=== PATIENT | female | born 1990 | race Caucasian/White ===

== ENCOUNTER 2024-11-23 02:59 | Observation (INO) | payer OTHER, SELFPAY ==
[2024-11-22 22:56] VITALS: BP 147/88
--- NOTE | 2024-11-22 23:32 | ED.GENMED ---
History of Present Illness
General
Chief Complaint: Abdominal Pain
Time Seen by Provider: 11/22/24 23:08
History of Present Illness
History of Present Illness:
34-year-old female presents to the emergency department for evaluation of persistent right lower quadrant pain for the past 2 days. She was seen at [facility] 2 days ago and had a CT scan with IV contrast that showed a ruptured left
ovarian cyst, appendix was not visualized but there were no secondary changes of acute appendicitis. She was noted to have normal labs including normal serum white blood cell count. She followed up with her CORE JAVA ENGINEER today who felt as though her pain
was not consistent with an ovarian pathology and recommended emergency department evaluation given that pain was worsening. Patient states the pain is worse when she stands upright, no associated nausea or vomiting. Prior abdominal surgery
includes x 3
Past History
Past History
ED Past Medical History: Asthma and Other (Tubal ligation, Chiari malformation, Ovarian cyst)
ED Past Surgical History: (X3)
Social History
Tobacco: Smoker
Alcohol: None
Personal: Single
Living: with family
Employment: Employed
Family History
Family History: Other (non contribuatory)
Review of Systems
Review of Systems
Allergies reviewed?: Yes
All Other Systems: ROS reviewed and negative except as documented in HPI and ROS
Phy Exam
Physical Exam
Physical Exam:
GEN: Well appearing, NAD, WDWN
HEENT: Oral mucosa moist, no scleral icterus
Cardiac: Regular rate
Lung: No respiratory distress, no tachypnea
Abdomen: Soft, moderate focal right lower quadrant tenderness, no rigidity or peritoneal signs
MSK: No gross deformity or injuries
Skin: Good color, no pallor or jaundice, no rashes
Neuro: AO x3, moves all extremities freely
Psych: Calm, cooperative
Course
Orders/Labs/Results
Orders:
Orders
11/22/24 23:28
Iohexol [Omnipaque] See Protocol PO NOW STA
US Pelvis W Transvag Combined Urgent
Comment:
Reason For Exam: RLQ pain
11/22/24 23:32
CRP [C-Reactive Protein] Urgent
Complete Blood Count/With Diff Urgent
Comprehensive Metabolic Panel Urgent
11/22/24 23:33
Urinalysis Reflex To Culture Urgent
Date Specimen was Collected: 11/22/24
Time Specimen was Collected: 23:31
11/23/24 01:30
CT Abd/pel W Iv And Oral Contr Urgent
Comment:
Reason For Exam: RLQ pain
11/23/24 02:14
CefTRIAXone [Rocephin] 2,000 mg IV NOW STA
MetroNIDAZOLE 500 MG/100 ML [Flagyl 500 mg] 100 ml IV NOW
Abnormal Lab Results
11/22/24
23:32
WBC 10.9 H 10^3/uL
(4.8-10.8)
RBC 3.87 L 10^6/uL
(4.20-5.40)
Hgb 11.9 L g/dL
(12.0-16.0)
Hct 35.3 L %
(37.0-47.0)
Absolute Neuts (auto) 8.0 H 10^3/uL
(1.4-6.5)
Lymphocytes % 18.8 L %
(20.5-51.1)
C-Reactive Protein 41.90 H mg/L
(0.0-10.00)
11/22/24 23:32
11/22/24 23:32
Vital Signs
Initial and Last Documented VS:
Initial Vital Signs
Temp Pulse Resp BP Pulse Ox
98.4 F 106 14 147/88 98
11/22/24 22:56 11/22/24 22:56 11/22/24 22:56 11/22/24 22:56 11/22/24 22:56
Last Documented Vital Signs
Temp Pulse Resp BP Pulse Ox
98.4 F 106 14 115/72 99
11/22/24 22:56 11/22/24 22:56 11/22/24 22:56 11/23/24 01:22 11/23/24 01:22
MDM/Problems Addressed
MDM/Problems Addressed:
Patient's exam consistent with acute appendicitis however given recent CT scan showing no appendectomy and ultrasound was obtained initially while given the patient p.o. contrast, this ultrasound was unremarkable, follow-up CT showing acute
appendicitis with concerning signs of potential abscess formation. IV antibiotics initiated, will admit to the surgical service for further management
*Critical Care Note
Total Time (30-74mins, 75-104mins- exclusive of procedures): Not Applicable
ED Attending Note
-
Portions of this chart may have been created with voice recognition software.� Occasional wrong word or��sound alike� substitutions may have occurred due to the inherent limitations of voice recognition software.
Discharge Plan
Departure
Patient Disposition: Admit
Date of Disposition: 11/23/24
Time of Disposition: 02:17
Admit to: Med/Surg
Presentation/result/management discussed w/ accepting /DO: Gen De Souza-Anna
Discharge Problem:
Acute appendicitis
Prescriptions:
No Action
albuterol sulfate [Proventil HFA] 90 MCG/PUFF HFA aerosol inhaler
1 - 2 puff inhalation DAILY PRN (Reason: wheezing)
lorazepam 0.5 MG tablet
0.5 mg PO Q4HPRN PRN (Reason: Anxiety) Qty: 15 0RF
prednisone 20 MG tablet
20 mg PO DAILY Qty: 5 0RF
Referrals:
Nadia Galindo DO [Family Provider] -
Interventions
Interventions:
*Risk Screen - Suicide Last Done: 11/22/24 22:56
*General Assessment Last Done: 11/22/24 22:56
*Neglect/Abuse Screening Last Done: 11/22/24 22:56
ED- Fall Risk Assessment Last Done: 11/23/24 00:44
*ED COVID-19 Vaccine History Last Done: 11/23/24 00:44
KD-Iinicv-Zphnoelurr Assessment Last Done: 11/23/24 01:15
Discharge Date and Time
Print Language: PASHTO
[2024-11-22] MEDS: OMNIPAQUE 50 ML PO (23:36)
[2024-11-22 23:59] LABS: % Basophils 0.4 % (0-2); % Eosinophils 1.2 % (0-6); % Immature Granulocytes 0.4 % (0-0.5); % Lymphocytes 18.8 % (20.5-51.1); % Monocytes 5.9 % (1.7-9.3); % Neutrophils 73.3 % (42.2-75.2); Absolute Eosinophils 0.1 10^3/uL (0-0.7); Absolute Lymphocytes 2.1 10^3/uL (1.2-3.4); Absolute Monocytes 0.6 10^3/uL (0.1-0.6); Hematocrit 35.3 % (37.0-47.0); Hemoglobin 11.9 g/dL (12.0-16.0); Mean Corp Hgb Conc. 33.7 g/dL (33.0-37.0); Mean Corpuscular Hgb 30.7 pg (27.0-31.0); Mean Corpuscular Volume 91.2 fL (81.0-99.0); Mean Platelet Volume 10.4 fL (7.4-10.4); Nucleated Red Blood Cells % 0 %; Platelet Count 295 10^3/uL (130-400); Red Blood Cell Count 3.87 10^6/uL (4.20-5.40); Red Cell Dist. Width 12.7 % (11.5-14.5); White Blood Cell Count 10.9 10^3/uL (4.8-10.8)
[2024-11-23] VITALS (10 sets, daily range): BP systolic 104–121; BP diastolic 21–76; BMI 25.0; BMI 25.2
[2024-11-23 00:08] LABS: ALT (SGPT) 19 U/L (0-35); AST (SGOT) 21 U/L (14-36); Albumin 4.2 g/dl (3.5-5.0); Alkaline Phosphatase 65 U/L (38-126); Blood Urea Nitrogen 14 mg/dl (7-17); Calcium 9.5 mg/dl (8.4-10.2); Carbon Dioxide 24 mmol/L (22-30); Chloride 105 mmol/L (98-107); Glucose 92 mg/dl (70-99); Potassium 3.8 mmol/L (3.5-5.1); Sodium 135 mmol/L (135-145); Total Bilirubin 0.5 mg/dl (0.2-1.3); Total Protein 7.2 g/dl (6.3-8.2); eGFR > 60.00
[2024-11-23 00:09] LABS: Urine Albumin Negative (Neg - Trace); Urine Bilirubin Negative (Negative); Urine Character Clear (Clear); Urine Color Yellow; Urine Glucose Negative (Negative); Urine Ketone Negative (Negative); Urine Leukocyte Negative (Negative); Urine Nitrite Negative (Negative); Urine Occult Blood Negative (Negative); Urine Specific Gravity 1.005 (<1.030); Urine Urobilinogen Negative (Neg - 1+)
[2024-11-23] MEDS: FLAGYL 500 MG 100 IV ×3 (02:58→19:41)
[2024-11-23] MEDS: ROCEPHIN 2000 MG IV (02:58)
--- NOTE | 2024-11-23 03:02 | HPS.HSE ---
Addendum entered and electronically signed by Toney Guerra MD 11/23/24 12:21:
I saw and examined the patient.
The PAYROLL MACHINE OPERATOR's note was reviewed and I agree with the note.
Comment:
Seen earlier in am.
History, vitals, labs, imaging reviewed. Patient seen and examined.
34 yo F with 4 days of R abdominal pain (mild) and CT showing evidence for acute appendicitis with small abscess vs phlegmon. I suspect a contained perforation. Minimally tender on exam and vitals and labs unremarkable. Situation and options
discussed with patient and her family including lap appy vs medical management with interval appendectomy at a later date. Risks and benefits of both approaches discussed. The patient is agreeable to the latter option which is reasonable. Will
advance diet and continue antibiotics. NPO after MN tonight just in case. Will reassess tomorrow with a goal of discharging her on po antibiotics.
Original Note:
Family Physician
-
Family Physician: Nadia Galindo
Chief Complaint
-
abd pain x 3-4 days
History of Present Illness
34-year-old female with hx mild asthma, mild chiari malformation, c section x3 presents to the emergency department for evaluation of persistent right lower quadrant pain since monday. She was seen at [facility] 2 days ago and had
a CT scan with IV contrast that showed a ruptured left ovarian cyst, appendix was not visualized but there were no secondary changes of acute appendicitis (per pt recollection, report not available). She was noted to have normal labs including
normal serum white blood cell count. She followed up with her SPINNER OPEN END today because the pain was persistent, who felt as though her pain was not consistent with an ovarian pathology and recommended emergency department evaluation given that pain was
worsening. Patient states the pain, mild but is worse when she stands upright, no associated nausea or vomiting. Prior abdominal surgery includes x 3. Denies nausea, vomiting. Normal BM, Denies fever, denies urinary complaints.
Treatments in ED:
Ct ABD: acute appendicitis in the right lower quadrant with very thickened and ill defines appearance of the appendix especially the tip, in mod inflammatory fat stranding with concern for developing periappendiceal abscess. No free air.
antibiotics- rocephin and flagyl started
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
WBC 10.0
CRP 41.9
Medical History
Past Medical History
Past Medical History: Reports Asthma (albuterol prn) and Other (mild chiari malformation, ovarian cyst rupture)
Past Surgical History: Reports (x3)
Social History
Tobacco: Smoker (occasionally, has cut back recently, maybe smokes pack per week. )
Alcohol: Occasional
Drug: None
Personal: Single
Living: With Family
Employment: Employed
Family History
Family History: Not pertinent
Allergies / Home Medications
Allergies reflects when Allergies were last updated in [employer].
Home Medications with original date entered in [employer]
Allergy/Medication List:
Allergies
Allergy/AdvReac Type Severity Reaction Status Date / Time
bee venom protein (honey bee) Allergy Swelling Verified 12/14/20 16:46
Penicillins Allergy Unknown Verified 12/14/20 16:46
Home Medications
albuterol sulfate 90 mcg/actuation aerosol inhaler (Proventil HFA) 1 - 2 puff inhalation DAILY PRN wheezing
Review of Systems
-
History Source: Patient
A 12 point ROS was completed and negative except as noted: Yes
Constitutional: Reports No Symptoms
EENT: Reports No Symptoms
Respiratory: Reports No Symptoms
Cardiac: Reports No Symptoms
Abdomen/GI: Reports Abdominal Pain and Pain (1-2/10. worse with movement. ); Denies Nausea, Vomiting, Diarrhea, Constipated, Bloody Stools or Black Stools
: Reports No Symptoms
Musculoskeletal: Reports No Symptoms
Skin: Reports No Symptoms
Neurological: Reports No Symptoms
Endocrine: Reports No Symptoms
Hematologic/Lymphatic: Reports No Symptoms
Psych: Reports Anxiety (anxious about anesthesia)
Physical Exam
Vital Signs
Vital Signs
Temp Pulse Resp BP Pulse Ox
98.4 F 106 14 115/72 99
11/22/24 22:56 11/22/24 22:56 11/22/24 22:56 11/23/24 01:22 11/23/24 01:22
Physical Exam
General: Well Developed, Well Nourished, No Apparent Distress, Comfortable, Conversant and Pain (-11/11)
HEENT: NormoCephalic, Anicteric, Moist mucous membranes, Atraumatic and Good Dentition
Respiratory: Clear and Non Labored Respirations
Cardiac: S1/S2 and Regular Rhythm
Breast: Deferred by me
GI: Soft, Non Distended, Normal Bowel Sounds and Tender (RLQ)
Rectal: Deferred by Provider
Genito-urinary: Clear Urine
Musculoskeletal: No Clubbing and No Cyanosis
Skin: Warm and Other (tattoos)
Neuro: Awake, Alert, Oriented, AO x 3, No Motor Deficits, Nonfocal/grossly intact and No Sensory Deficits
Psych: Anxious (some anxiety about having anesthesia)
Laboratory Results
-
11/22/24 23:32
11/22/24 23:32
Laboratory Results
Total Bilirubin 0.5 mg/dl (0.2-1.3) 11/22/24 23:32
AST 21 U/L (14-36) 11/22/24 23:32
ALT 19 U/L (0-35) 11/22/24 23:32
Alkaline Phosphatase 65 U/L (38-126) 11/22/24 23:32
Data Reviewed
-
CT Scan: Discussed with Physician
Impression/Plan
-
IMPRESSION:
acute appendicitis with poss abscess
PLAN:
Admit to service of Dr guerra
med surg obs
#acute appendicitis with poss abscess
-Ct ABD: acute appendicitis in the right lower quadrant with very thickened and ill defines appearance of the appendix especially the tip, in mod inflammatory fat stranding with concern for developing periappendiceal abscess. No free air.
-WBC 10.9--> repeat in am
-Rocephin and Flagyl started in ED---> continue
-Pain control: tylenol, toradol, morphine
-zofran prn
-NPO x meds for OR
#asthma
-takes albuterol prn (rarely)
DVT proph: scd
Full code
Answered questions to best of my ability
[2024-11-23] MEDS: NSS 1000 IV ×2 (04:32→15:16)
--- NOTE | 2024-11-23 05:06 | PTCARENOTE ---
pt is aaox3, no c/o abdomen pain or nausea at this time. pt showered and chg wipes completed. pt npo for surgery. IVF running. pt oriented to room w/ call cooper in reach.
[2024-11-23 07:17] LABS: % Basophils 0.3 % (0-2); % Eosinophils 1.3 % (0-6); % Immature Granulocytes 0.4 % (0-0.5); % Lymphocytes 16.7 % (20.5-51.1); % Monocytes 7.4 % (1.7-9.3); % Neutrophils 73.9 % (42.2-75.2); Absolute Eosinophils 0.1 10^3/uL (0-0.7); Absolute Lymphocytes 1.5 10^3/uL (1.2-3.4); Absolute Monocytes 0.7 10^3/uL (0.1-0.6); Absolute Neutrophils 6.8 10^3/uL (1.4-6.5); Hemoglobin 10.1 g/dL (12.0-16.0); Mean Corp Hgb Conc. 33.7 g/dL (33.0-37.0); Mean Corpuscular Hgb 30.9 pg (27.0-31.0); Mean Corpuscular Volume 91.7 fL (81.0-99.0); Mean Platelet Volume 10.6 fL (7.4-10.4); Nucleated Red Blood Cells % 0 %; Platelet Count 256 10^3/uL (130-400); Red Blood Cell Count 3.27 10^6/uL (4.20-5.40); Red Cell Dist. Width 12.6 % (11.5-14.5); White Blood Cell Count 9.2 10^3/uL (4.8-10.8)
[2024-11-23 07:38] LABS: ALT (SGPT) 18 U/L (0-35); AST (SGOT) 19 U/L (14-36); Albumin 3.4 g/dl (3.5-5.0); Alkaline Phosphatase 59 U/L (38-126); Blood Urea Nitrogen 9 mg/dl (7-17); Calcium 8.8 mg/dl (8.4-10.2); Carbon Dioxide 24 mmol/L (22-30); Chloride 107 mmol/L (98-107); Estimated Creatinine Clearance 112 ml/min; Glucose 85 mg/dl (70-99); Sodium 135 mmol/L (135-145); Total Bilirubin 0.5 mg/dl (0.2-1.3); eGFR > 60.00
--- NOTE | 2024-11-23 10:03 | CM ---
Addendum entered by Farzana Dietrich RN 11/23/24 11:14:
Patient was admitted under observational status. The observational letter was provided and explained. The patient had no questions with regards to the letter.
Original Note:
Reviewed the chart notes and spoke with the patient at the bedside. The patient resides with her significant other in a two story home with no steps to enter. The patient reports no DME/VN/SNF in the past. The patient confirmed her pharmacy of
choice is the [facility]. continues to be available to patient/family and is monitoring medical plan for needs at discharge.
Plan: Discharge to home when medically stable. No needs anticipated at this time.
[2024-11-23] MEDS: TYLENOL 650 MG PO (14:21)
[2024-11-24] MEDS: ROCEPHIN 2000 MG IV (02:21)
[2024-11-24] MEDS: STERILE WATER FOR INJECTION 10 ML IV (02:22)
[2024-11-24] MEDS: NSS 1000 IV (02:29)
[2024-11-24] MEDS: FLAGYL 500 MG 100 IV (04:44)
[2024-11-24 07:00] LABS: % Basophils 0.3 % (0-2); % Eosinophils 1.3 % (0-6); % Immature Granulocytes 0.3 % (0-0.5); % Lymphocytes 19.4 % (20.5-51.1); % Monocytes 7.8 % (1.7-9.3); % Neutrophils 70.9 % (42.2-75.2); Absolute Eosinophils 0.1 10^3/uL (0-0.7); Absolute Lymphocytes 1.5 10^3/uL (1.2-3.4); Absolute Monocytes 0.6 10^3/uL (0.1-0.6); Absolute Neutrophils 5.6 10^3/uL (1.4-6.5); Hematocrit 29.9 % (37.0-47.0); Hemoglobin 10.4 g/dL (12.0-16.0); Mean Corp Hgb Conc. 34.8 g/dL (33.0-37.0); Mean Corpuscular Hgb 31.2 pg (27.0-31.0); Mean Corpuscular Volume 89.8 fL (81.0-99.0); Mean Platelet Volume 10.6 fL (7.4-10.4); Nucleated Red Blood Cells % 0 %; Platelet Count 269 10^3/uL (130-400); Red Blood Cell Count 3.33 10^6/uL (4.20-5.40); Red Cell Dist. Width 12.8 % (11.5-14.5); White Blood Cell Count 7.9 10^3/uL (4.8-10.8)
[2024-11-24 08:00] VITALS: BP 102/60
--- NOTE | 2024-11-24 08:20 | W.PN.GS2 ---
Today's Communication / Plan
-
Discharge.
Assessment / Plan
-
Appendicitis with phlegmon.
1. continuing nonoperative approach. Low residue diet and antibiotics.
2. discharge.
Subjective Data
-
Date of Service: November 24, 2024
Mild RLQ pain.
No nausea or emesis.
Objective Data
-
Intake and Output
11/23/24 11/24/24 11/25/24
06:59 06:59 06:59
Intake Total 350 / 350 1540 / 1540
Balance 350 / 350 1540 / 1540
Intake:
Oral fluids 0 / 0 240 / 240
IV fluids (Total) 250 / 250 1000 / 1000
IV piggybacks 100 / 100 300 / 300
Other:
Number of approximated MODERATE 1 3
amounts of urine
Number of approximated LARGE 1
amounts of urine
Vital Signs
Temp Pulse Resp BP Pulse Ox
98.3 F 82 18 107/21 98
11/23/24 22:55 11/23/24 22:55 11/23/24 22:55 11/23/24 22:55 11/23/24 22:55
Lab Results
11/24/24 05:25
11/23/24 06:06
Calcium 8.8 mg/dl (8.4-10.2) 11/23/24 06:06
Total Bilirubin 0.5 mg/dl (0.2-1.3) 11/23/24 06:06
AST 19 U/L (14-36) 11/23/24 06:06
ALT 18 U/L (0-35) 11/23/24 06:06
Alkaline Phosphatase 59 U/L (38-126) 11/23/24 06:06
Total Protein 6.0 g/dl (6.3-8.2) L 11/23/24 06:06
Albumin 3.4 g/dl (3.5-5.0) L 11/23/24 06:06
Physical Exam
-
AFVSS
Abdomen mildly tender in RLQ
--- NOTE | 2024-11-24 08:26 | W.DS.TRANS ---
DC Summary - Pharmacy Technologist
-
Discharge Instructions:
Discharge Diagnosis/Procedures appendicitis
Diet Low Residue
Activity As tolerated
Driving Restrictions As prior to admission
Bathing Restrictions None
Instructions: Low-fiber diet
Stand-Alone Forms:
Changes to Home Medications: Yes
Discharge Medications:
DC Medications w/original date entered in [facility]
albuterol sulfate 90 mcg/actuation aerosol inhaler (Proventil HFA) 1 - 2 puff inhalation DAILY PRN wheezing 03/27/12
levofloxacin 750 mg tablet 750 mg PO DAILY #10 tabs 11/24/24
metronidazole 500 mg tablet 500 mg PO Q8H 10 days #30 tabs 11/24/24
Home Medication Changes
levofloxacin 750 mg tablet 750 mg PO DAILY #10 tabs 11/24/24
metronidazole 500 mg tablet 500 mg PO Q8H 10 days #30 tabs 11/24/24
Pending Results: No
[2024-11-24] MEDS: TYLENOL 650 MG PO (08:29)
== END 2024-11-24 09:20 | disposition home or self-care (01) ==
LOC: 2 SOUTH 02:59
PROVIDERS: Nurse Practitioner Family; Physician Assistant; ADMITTING PHYSICIAN Surgery; EMERGENCY PHYSICIAN Emergency Medicine; FAMILY PHYSICIAN Family Medicine
DX: K35.33 Acute appendicitis with perforation, localized peritonitis, and gangrene, with abscess (principal); F17.200 Nicotine dependence, unspecified, uncomplicated; J45.909 Unspecified asthma, uncomplicated
CPT/HCPCS: 74177; 76830; 76856; 80053; 81003; 85025; 86140; 96365; 96375; 99285; G0378; Q9967

== ENCOUNTER 2025-01-06 06:31 | Day surgery (SDC) | payer OTHER, SELFPAY ==
[2025-01-06] VITALS (10 sets, daily range): BP systolic 97–118; BP diastolic 54–73; BMI 24.5
[2025-01-06] MEDS: TYLENOL 1000 MG PO (13:49)
[2025-01-06] MEDS: NORMOSOL-R/PLASMALYTE-A 1000 IV (13:49)
[2025-01-06] MEDS: HEPARIN 5000 UNITS SC (14:58)
--- NOTE | 2025-01-06 17:17 | W.IMMPOSTOP ---
Surgical Immed Post Op Note
-
Primary Surgeon: Jean Carlos
Assisting: Edy RAMIREZ
Pre-op Diagnosis: Acute perforated appendicitis, history of
Post-op Diagnosis: Same
Procedure Performed: Laparoscopic apendectomy
Anesthesia Type: GETA
Specimen / Cultures: Appendix
Estimated Blood Loss: 10cc
Complications: None immediate
Operative Findings: Severely scarred appendix to anterior surface of cecum, came apart during dissection but no purulence nor stool contamination was encountered. Irrigated and suctioned.
--- NOTE | 2025-01-06 17:19 | OR.RPT ---
Operative Report
Operative Report
Primary Surgeon: Jean Carlos
Assisting: Edy RAMIREZ
Pre-op Diagnosis: Acute perforated appendicitis, history of
Post-op Diagnosis: Same
Procedure Performed: Laparoscopic apendectomy
Anesthesia Type: GETA
Specimen / Cultures: Appendix
Estimated Blood Loss: 10cc
Complications: None immediate
Operative Findings: Severely scarred appendix to anterior surface of cecum, came apart during dissection but no purulence nor stool contamination was encountered. Irrigated and suctioned.
Date of Surgery: 01/06/25
Indications: 34F developed acute perforated appendicitis and was managed non-operatively. She elected interval laparoscopic appendectomy.
Description of procedure: The patient was placed on the operating table in the supine position. General anesthesia was induced. A time-out was completed verifying correct patient, procedure, site, positioning, and special equipment prior to
beginning this procedure. An orogastric tube was placed. The abdomen was prepped and draped in the usual sterile fashion. A stab incision was made in left upper quadrant and the Veress needle was inserted. Proper position was confirmed by aspiration
and saline meniscus test. The abdomen was insufflated with carbon dioxide to a pressure of 12 mmHg. The patient tolerated insufflation well.
A 5mm optical trocar was then inserted at the left lower quadrant. The laparoscope was inserted and the abdomen inspected. No injuries from initial trocar placement or Veress needle insertion were noted. Additional trocars were then inserted in the
following locations: a 12-mm trocar at the umbilicus and a 5-mm trocar midline in the suprapubic space. The abdomen was inspected and no abnormalities were found. The table was placed in the Trendelenburg position with the right side up. The
appendix was densely fused to the anterior wall of the cecum. The distal right colon and cecum were mobilized off the abdominal wall with the voyant device. The base of the appendix was teased away from the serosa of the cecum and a window around it
was created with a maryland dissector The appendix was taken with an endo SARAH stapler with shukla load. The appendix was then grasped and elevated and bluntly dissected away from the wall of the cecum. An old abscess cavity abutting the cecum was
entered and opened in order to facilitate dissection of the appendix. No purulence nor stool contamination was encountered. Once it was totally freed, the appendix was placed in an endoscopic retrieval bag, removed through the umbilical port, and
passed off the table as a specimen. It did break apart in slightly and all pieces were retrieved.
We then turned our attention to the staple line, which was noted to be hemostatic. The right abdomen was irrigated thoroughly and the effluent was suctioned. The umbilical trocar site was closed at the fascial level laparoscopically with 2-0 PDS
under direct vision. Secondary trocars were removed under direct vision and noted to be hemostatic. The laparoscope was withdrawn and the abdomen was allowed to collapse. The skin was closed with subcuticular sutures of 4-0 monocryl and topical skin
adhesive. The orogastric tube was removed.
The patient tolerated the procedure well and was taken to the postanesthesia care unit in stable condition.
The assistance of Edy RAMIREZ was required due to the complexity of the procedure. During the procedure she assisted with retraction, resection, and closure of the wound.
[2025-01-06] MEDS: DILAUDID 0.25 MG IV ×2 (17:50→18:07)
[2025-01-06] MEDS: TORADOL 15 MG IV (18:56)
== END 2025-01-06 19:28 | disposition home or self-care (01) ==
LOC: SDS 06:31
PROVIDERS: ATTENDING PHYSICIAN Surgery; FAMILY PHYSICIAN Family Medicine
DX: K35.32 Acute appendicitis with perforation, localized peritonitis, and gangrene, without abscess (principal)
CPT/HCPCS: 44970; 88304; C1776

== ENCOUNTER 2025-01-11 12:18 | Emergency (ER) | payer OTHER, SELFPAY ==
[2025-01-11 12:45] VITALS: BP 125/78
[2025-01-11 13:07] VITALS: BMI 24.2
--- NOTE | 2025-01-11 13:08 | ED.GENMED ---
History of Present Illness
General
Chief Complaint: Post Operative Problem(s)
Source: patient and records
Exam Limitations: none
Time Seen by Provider: 01/11/25 12:46
History of Present Illness
History of Present Illness:
34yoF with a history of recent appendectomy on 01/06/[address] Evangelista presenting for evaluation of abdominal pain. Patient was initially seen in the hospital in November 2024. CT showed acute appendicitis with phlegmon at that time. She was
initially managed nonoperatively with antibiotics with plan for delayed surgery. Operative note from 12/06 documents 'Severely scarred appendix to anterior surface of cecum, came apart during dissection but no purulence nor stool contamination was
encountered.' Since her surgery, she continues to have pain in her right lower quadrant. She also reports nausea but denies any vomiting. She has been experiencing chills without fevers. She started with diarrhea 2 days ago which has a distinct
foul odor. Patient is unsure if her symptoms are normal for the postoperative period but decided to come to the ED to be sure that there was nothing concerning going on.
Past History
Past History
ED Past Medical History: Asthma and Other (Tubal ligation, Chiari malformation, Ovarian cyst)
ED Past Surgical History: (X3)
Social History
Tobacco: Smoker
Alcohol: None
Personal: Single
Living: with family
Employment: Employed
Family History
Family History: Other (non contribuatory)
Phy Exam
General Physical Exam
General Presentation: well appearing and no apparent distress
General age: appears stated age
General Skin: warm and dry
General Habitus: normal
General Mental: alert
ENT Exam
ENT Exam: normocephalic
Pulmonary Exam
Pulmonary Exam: no respiratory distress
Gastrointestinal Exam
Gastrointestinal Exam: soft, non distended and other (+Focal tenderness in the RLQ. Surgical incisions c/d/i. Abdomen soft, non-distended. No rebound or guarding.)
Neurological Exam
Neurological Exam: alert
Dez Coma Scale
Eye Opening: Spontaneous
Verbal Response: Oriented
Motor Response: Obeys Commands
GCS Total Score: 15
Skin Exam
Skin Exam: normal color and warm/dry
Psychiatric Exam
Psychiatric Exam: normal mood/affect
Course
Orders/Labs/Results
Orders:
Orders
01/11/25 12:53
Test Result ONCE
01/11/25 13:04
Complete Blood Count/With Diff Urgent
Comprehensive Metabolic Panel Urgent
HCG, Serum Qualitative Screen Urgent
Lipase Urgent
01/11/25 13:06
CT Abd/pel W Iv And Oral Contr Urgent
Comment:
Reason For Exam: RLQ pain, recent appendectomy
0.9% Sodium Chloride 1000 ml [Nss] 1,000 ml IV BOLUS
Iohexol [Omnipaque] See Protocol PO NOW STA
01/11/25 13:39
Ketorolac [Toradol] 15 mg IV NOW STA
Ondansetron Injectable [Zofran] 4 mg IV NOW STA
Abnormal Lab Results
01/11/25
13:04
WBC 11.5 H 10^3/uL
(4.8-10.8)
RBC 4.05 L 10^6/uL
(4.20-5.40)
Hct 35.4 L %
(37.0-47.0)
Plt Count 439 H 10^3/uL
(130-400)
Absolute Neuts (auto) 9.4 H 10^3/uL
(1.4-6.5)
Absolute Monos (auto) 0.7 H 10^3/uL
(0.1-0.6)
Neutrophils % 81.7 H %
(42.2-75.2)
Lymphocytes % 10.3 L %
(20.5-51.1)
Calcium 10.4 H mg/dl
(8.4-10.2)
01/11/25 13:04
01/11/25 13:04
Vital Signs
Initial and Last Documented VS:
Initial Vital Signs
Temp Pulse Resp BP Pulse Ox
97.4 F 102 16 125/78 98
01/11/25 12:45 01/11/25 12:45 01/11/25 12:45 01/11/25 12:45 01/11/25 12:45
Last Documented Vital Signs
Temp Pulse Resp BP Pulse Ox
97.4 F 70 15 106/64 100
01/11/25 12:45 01/11/25 17:00 01/11/25 17:00 01/11/25 15:00 01/11/25 17:00
MDM/Problems Addressed
Differential Diagnosis Includes:
34yoF here with RLQ pain. S/p appendectomy 5 days ago. Also c/o nausea and diarrhea. +Chills but denies fever and temp is 97.4 on arrival. She is well appearing in no distress. No signs of peritonitis on abdominal exam. Surgical incisions c/d/i.
Differential diagnosis includes but is not limited to: postoperative pain, abscess, perforation
Initial ED plan: Check abdominal labs, HCG, and CT abdomen with IV/PO contrast. IV Toradol, Zofran, and fluid bolus for symptoms.
*Critical Care Note
Total Time (30-74mins, 75-104mins- exclusive of procedures): Not Applicable
Update Note
Update Note:
Labs reveal a mild leukocytosis with a WBC of 11.5 which is nonspecific. Remainder of labs unremarkable. Imaging shows small volume pneumoperitoneum and small volume free fluid in the RLQ which is likely all postoperative changes. No discrete fluid
collection present. There is a 2.5cm R adnexal hypodensity, likely an ovarian cyst. Pain controlled on reassessment. No indication for hospitalization. Prescription given for Zofran. Advised close f/u with her general surgery team. ED return
precautions discussed. Patient in agreement with plan and was discharged in stable condition.
ED Attending Note
-
Portions of this chart may have been created with voice recognition software.� Occasional wrong word or��sound alike� substitutions may have occurred due to the inherent limitations of voice recognition software.
Discharge Plan
Departure
Patient Disposition: Home (Routine Discharge)
Date of Disposition: 01/11/25
Time of Disposition: 16:57
Patient with high blood pressure during this ER visit?: No
Discharge Problem:
Postoperative abdominal pain, Nausea
Instructions: Postoperative Pain (DC)
Prescriptions:
New
ondansetron HCl 4 mg tablet
4 mg PO Q6H PRN (Reason: nausea and vomiting) Qty: 20 0RF
No Action
albuterol sulfate 90 mcg/actuation Hfa Aerosol Inhaler
1 inh INHALATION ONCE PRN (Reason: asthma)
tramadol 50 mg tablet
50 - 100 mg PO Q6H PRN (Reason: Pain) Qty: 20 0RF
acetaminophen [Tylenol] 325 mg Tablet
1,000 mg PO Q6H PRN (Reason: pain)
Referrals:
Don Evangelista MD [Active] -
Nadia Galindo DO [Family Provider] -
Activity Restrictions/Additional Instructions:
Take Zofran as needed for nausea.
Please follow-up with your surgery on Monday. Return to the ER with any worsening symptoms including fevers or severe pain.
Interventions
Interventions:
*Risk Screen - Suicide Last Done: 01/11/25 12:45
*General Assessment Last Done: 01/11/25 13:07
*Neglect/Abuse Screening Last Done: 01/11/25 12:45
*ED- Fall Risk Assessment Last Done: 01/11/25 13:07
*ED COVID-19 Vaccine History Last Done: 01/11/25 13:07
*Nursing Disposition Last Done: 01/11/25 17:08
ED-Skin Assessment Last Done: 01/11/25 13:50
Discharge Date and Time
Discharge Date/Time: 01/11/25 17:12
Print Language: RWANDAN
[2025-01-11 13:19] VITALS: BP 106/69
[2025-01-11] MEDS: NSS 1000 IV (13:21)
[2025-01-11] MEDS: OMNIPAQUE 50 ML PO (13:27)
[2025-01-11 13:31] LABS: % Basophils 0.3 % (0-2); % Eosinophils 1.3 % (0-6); % Immature Granulocytes 0.3 % (0-0.5); % Lymphocytes 10.3 % (20.5-51.1); % Monocytes 6.1 % (1.7-9.3); % Neutrophils 81.7 % (42.2-75.2); Absolute Eosinophils 0.2 10^3/uL (0-0.7); Absolute Lymphocytes 1.2 10^3/uL (1.2-3.4); Absolute Monocytes 0.7 10^3/uL (0.1-0.6); Absolute Neutrophils 9.4 10^3/uL (1.4-6.5); Hematocrit 35.4 % (37.0-47.0); Mean Corp Hgb Conc. 33.9 g/dL (33.0-37.0); Mean Corpuscular Hgb 29.6 pg (27.0-31.0); Mean Corpuscular Volume 87.4 fL (81.0-99.0); Mean Platelet Volume 9.9 fL (7.4-10.4); Nucleated Red Blood Cells % 0 %; Platelet Count 439 10^3/uL (130-400); Red Blood Cell Count 4.05 10^6/uL (4.20-5.40); Red Cell Dist. Width 12.5 % (11.5-14.5); White Blood Cell Count 11.5 10^3/uL (4.8-10.8)
[2025-01-11] MEDS: ZOFRAN 4 MG IV (13:43)
[2025-01-11] MEDS: TORADOL 15 MG IV (13:44)
[2025-01-11 13:48] LABS: ALT (SGPT) 11 U/L (0-35); AST (SGOT) 14 U/L (14-36); Albumin 3.9 g/dl (3.5-5.0); Alkaline Phosphatase 74 U/L (38-126); Blood Urea Nitrogen 10 mg/dl (7-17); Calcium 10.4 mg/dl (8.4-10.2); Carbon Dioxide 27 mmol/L (22-30); Chloride 104 mmol/L (98-107); Estimated Creatinine Clearance 96 ml/min; Glucose 97 mg/dl (70-99); Lipase 41 U/L (23-300); Potassium 4.7 mmol/L (3.5-5.1); Sodium 138 mmol/L (135-145); Total Bilirubin 0.5 mg/dl (0.2-1.3); eGFR > 60.00
[2025-01-11 13:55] LABS: HCG, Serum Qualitative Screen Negative
[2025-01-11 14:00] VITALS: BP 104/70
[2025-01-11 15:00] VITALS: BP 106/64
== END 2025-01-11 17:12 | disposition home or self-care (01) ==
LOC: EMR 12:18
PROVIDERS: Physician Assistant; EMERGENCY PHYSICIAN Student in an Organized Health Care Education/Training Program; FAMILY PHYSICIAN Family Medicine
DX: R10.9 Unspecified abdominal pain (principal); R11.0 Nausea; J45.909 Unspecified asthma, uncomplicated
CPT/HCPCS: 99284; 74177; 80053; 83690; 84703; 85025; Q9967

== ENCOUNTER → 2025-06-27 10:27 | Outpatient (REF) | payer OTHER, SELFPAY | LOC: OHS 10:27 | PROVIDERS: ATTENDING PHYSICIAN Nurse Practitioner Family | DX: Z23 Encounter for immunization (principal) | CPT/HCPCS: 36415; 86480; 86706 ==